=== PATIENT | female | born 1950 | race Caucasian/White ===

== ENCOUNTER 2017-11-20 19:00 | Emergency (ER) | END 2017-11-21 10:14 | disposition home or self-care (01) ==

== ENCOUNTER 2018-03-02 08:51 | Day surgery (SDC) | END 2018-03-04 10:09 | disposition home or self-care (01) ==

== ENCOUNTER 2018-08-10 11:04 | Day surgery (SDC) | END 2018-08-10 17:33 | disposition home or self-care (01) ==

== ENCOUNTER 2018-08-17 15:32 | Emergency (ER) | END 2018-08-17 21:01 | disposition home or self-care (01) ==

== ENCOUNTER 2019-04-02 15:10 | Emergency (ER) | payer OTHER ==
[~2019-04-02] VITALS: Ht 160 cm; Wt 60.0 kg
[~2019-04-02 15:10] MED LIST: ASPI-817 PO; CALC0.2511 PO; CARV12.579 PO; CLIN300C10 PO; EZET10TA31 PO; FER325 PO; FOLI-49 PO; FURO40TA4 PO; GABA300C16 PO; HYDR-4011 PO; INSU100V3 IJ; LOSA50TA14 PO; NEPH PO; NIFE90TA11 PO; NPH,100V SQ; SIMV40TA2 PO
[2019-04-02 15:18] VITALS: Ht 160 cm; Wt 60.0 kg
[2019-04-02] MEDS ORDERED: SOD CHLORIDE 0.9% 500 ML IV STA (16:15)
[2019-04-02 17:50] VITALS: BP 135/54; PULSE 76; RESP 18
--- NOTE | 2019-04-02 18:45 | ERD ---
ER Documentation Chief Complaint Chief Complaint generalized weakness started today while on a walk also near syncope ROS All systems reviewed and are negative except as per history of present illness. Medications Home Meds Reported Medications Furosemide* (Furosemide*) 40 Mg Tablet, 20 MG PO BID, TAB 08/17/18 Insulin Regular, Human (Humulin R) 100 Unit/1 Ml Vial, 5 UNIT IJ QPM, VIAL 08/17/18 Insulin Regular, Human (Humulin R) 100 Unit/1 Ml Vial, 10 UNIT IJ QAM, VIAL 08/10/18 Insulin NPH Human Isophane (Humulin N) 100 Unit/1 Ml Vial, 6 UNIT SQ QPM, VIAL 08/10/18 Insulin NPH Human Isophane (Humulin N) 100 Unit/1 Ml Vial, 30 UNITS SQ AC BREAKFAST, VIAL 08/10/18 Aspirin* (Aspirin* EC) 81 Mg Tablet.dr, 81 MG PO DAILY, TAB 08/10/18 Simvastatin* (Zocor*) 40 Mg Tablet, 40 MG PO QHS, #30 TAB 03/02/18 Losartan Potassium* (Losartan Potassium*) 50 Mg Tablet, 50 MG PO BID, TAB 03/02/18 Gabapentin* (Gabapentin*) 300 Mg Capsule, 300 MG PO BID, #60 CAP 03/02/18 Carvedilol* (Carvedilol*) 12.5 Mg Tablet, 12.5 MG PO BID, #60 TAB 11/21/17 Nifedipine* (Nifedipine ER*) 90 Mg Tablet.er, 90 MG PO DAILY, TAB 11/21/17 Ferrous Sulfate* (Ferrous Sulfate*) 325 Mg Tabec, 325 MG PO BID, TAB 11/21/17 Folic Acid* (Folic Acid*) 1 Mg Tablet, 1 MG PO DAILY, TAB 11/21/17 Calcitriol* (Calcitriol*) 0.25 Mcg Capsule, 0.25 MG PO DAILY, CAP 11/11/15 Discontinued Reported Medications Multivit/Ca Carb/B Cmplx/Fa* (Judie-Natacha*) 1 Tab Tab, 1 TAB PO DAILY, TAB 08/17/18 Ezetimibe* (Zetia*) 10 Mg Tablet, 10 MG PO HS, TAB 08/10/18 Discontinued Scripts Hydrocodone/Acetaminophen ([place] 5-325 Tablet) 1 Each Tablet, 1 EACH PO Q6 PRN for SEVERE PAIN LEVEL 7-10, #14 TAB Prov:NOAH GUAMAN DO 08/17/18 Clindamycin Hcl* (Clindamycin Hcl*) 300 Mg Capsule, 300 MG PO Q8 for 10 Days, CAP Prov:NOAH GUAMAN DO 08/17/18 Allergies Allergies: Coded Allergies: linagliptin (Verified Allergy, Unknown, RASH, 04/02/19) PMhx/Soc History of Surgery: Yes (back sx) Anesthesia Reaction: No Hx Neurological Disorder: No Hx Respiratory Disorders: No Hx Cardiac Disorders: Yes (htn, ) Hx Psychiatric Problems: No Hx Miscellaneous Medical Probl: Yes (DM, CKD,dialysis since february 2019) Hx Alcohol Use: No Hx Substance Use: No Hx Tobacco Use: No Smoking Status: Never smoker Physical Exam Vitals Vital Signs Date Temp Pulse Resp B/P (MAP) Pulse Ox O2 O2 Flow FiO2 Time Delivery Rate 04/02/19 76 18 135/54 98 Room Air 17:50 (81) 04/02/19 97.6 74 18 123/55 95 15:18 (77) Physical Exam Const: No acute distress Head: Atraumatic Eyes: Normal Conjunctiva ENT: Normal External Ears, Nose and Mouth. Neck: Full range of motion. No meningismus. Resp: Clear to auscultation bilaterally Cardio: Regular rate and rhythm, no murmurs Abd: Soft, non tender, non distended. Normal bowel sounds Skin: No petechiae or rashes Back: No midline or flank tenderness Ext: No cyanosis, or edema Neur: Awake and alert Psych: Normal Mood and Affect Result Diagram: 04/02/19 1629 04/02/19 1629 Results 24 hrs Laboratory Tests Test 04/02/19 16:29 04/02/19 16:44 White Blood Count 9.9 10^3/ul Red Blood Count 4.15 10^6/ul Hemoglobin 11.7 g/dl Hematocrit 36.4 % Mean Corpuscular Volume 87.7 fl Mean Corpuscular Hemoglobin 28.2 pg Mean Corpuscular Hemoglobin Concent 32.1 g/dl Red Cell Distribution Width 14.5 % Platelet Count 340 10^3/UL Mean Platelet Volume 10.6 fl Immature Granulocytes % 0.500 % Neutrophils % 66.3 % Lymphocytes % 22.2 % Monocytes % 8.2 % Eosinophils % 2.1 % Basophils % 0.7 % Nucleated Red Blood Cells % 0.0 /100WBC Immature Granulocytes # 0.050 10^3/ul Neutrophils # 6.6 10^3/ul Lymphocytes # 2.2 10^3/ul Monocytes # 0.8 10^3/ul Eosinophils # 0.2 10^3/ul Basophils # 0.1 10^3/ul Nucleated Red Blood Cells # 0.0 10^3/ul Sodium Level 140 mmol/L Potassium Level 5.4 mmol/L Chloride Level 102 mmol/L Carbon Dioxide Level 27 mmol/L Anion Gap 11 Blood Urea Nitrogen 43 mg/dl Creatinine 3.37 mg/dl Est Glomerular Filtrat Rate mL/min 14 mL/min Glucose Level 88 mg/dl Calcium Level 9.5 mg/dl Troponin I < 0.012 ng/ml Urine Color YELLOW Urine Clarity SLIGHTLY CLOUDY Urine pH 8.0 Urine Specific [place] 1.008 Urine Ketones NEGATIVE mg/dL Urine Nitrite NEGATIVE mg/dL Urine Bilirubin NEGATIVE mg/dL Urine Urobilinogen NEGATIVE mg/dL Urine Leukocyte Esterase NEGATIVE [place]/ul Urine Microscopic RBC 0 /HPF Urine Microscopic WBC 2 /HPF Urine Squamous Epithelial Cells FEW /HPF Urine Hemoglobin NEGATIVE mg/dL Urine Glucose NEGATIVE mg/dL Urine Total Protein 2+ mg/dl Current Medications Medications Dose Sig/Migd[place] Start Time Status Last (Trade) Ordered Route PRN Stop Time Admin Dose Reason Admin Sodium 500 ml @ Q1H STAT 04/02/19 DC 04/02/19 Chloride 500 mls/hr IV 16:15 16:33 04/02/19 17:14 Departure Diagnosis: Primary Impression: Dizziness Condition: Stable Patient Instructions: Dizziness, Unk Cause Referrals: [facility] (PCP) Additional Instructions: Sherif foy. Regresa si estas empeorando. TIERA WILSON MD April 02, 2019 18:45
--- NOTE | 2019-04-03 11:56 | RADRPT ---
Vent Rate: 69 bpm RR Interval: 0 msec MO Interval: 174 msec QRS Duration: 84 msec QT Interval: 404 msec QTC Interval: 432 msec P-R-T [place]: 22 - 14 - 71 degrees Normal sinus rhythm Normal ECG Electronically Signed By: *[facility]
== END 2019-04-02 19:22 | disposition home or self-care (01) ==
LOC: E/R 15:10
DX: R42 Dizziness and giddiness (principal); N18.9 Chronic kidney disease, unspecified; E11.22 Type 2 diabetes mellitus with diabetic chronic kidney disease; I12.9 Hypertensive chronic kidney disease with stage 1 through stage 4 chronic kidney disease, or unspecified chronic kidney disease; Z79.4 Long term (current) use of insulin; Z79.82 Long term (current) use of aspirin; Z99.2 Dependence on renal dialysis
CPT/HCPCS: 36415; 71045; 80048; 81001; 84484; 85025; 93005; J7040; Z7502